=== PATIENT | female | born 1995 | race Caucasian/White ===

== ENCOUNTER 2018-08-03 21:30 | Emergency (ER) | payer MEDICAID, OTHER ==
[~2018-08-03] VITALS: Ht 175.3 cm; Wt 141.5 kg
[2018-08-03 22:35] LABS: HEMATOCRIT 38 % (35-52); HEMOGLOBIN 12.1 G/DL (11.5-16.0); MEAN CORPUSCULAR HEMOGLOBIN 25 PG (25-34); WHITE BLOOD COUNT 10.2 10^3/uL (4.3-11.0)
[2018-08-03 22:36] LABS: BASOPHILS % (AUTO) 0 % (0-10); EOSINOPHILS # (AUTO) 0.2 10^3/uL (0.0-0.3); EOSINOPHILS % (AUTO) 2 % (0-10); LYMPHOCYTES # (AUTO) 3.2 X 10^3 (1.0-4.0); LYMPHOCYTES % (AUTO) 31 % (12-44); MEAN CORPUSCULAR HGB CONC 32 G/DL (32-36); MEAN CORPUSCULAR VOLUME 79 FL (80-99); MEAN PLATELET VOLUME 11.4 FL (7.4-10.4); MONOCYTES # (AUTO) 0.5 X 10^3 (0.0-1.0); MONOCYTES % (AUTO) 5 % (0-12); NEUTROPHILS # (AUTO) 6.2 X 10^3 (1.8-7.8); NEUTROPHILS % (AUTO) 61 % (42-75); PLATELET COUNT 237 10^3/uL (130-400); RED CELL DISTRIBUTION WIDTH 14.2 % (10.0-14.5)
--- NOTE | 2018-08-03 23:00 | ED Abdominal Pain ---
General Chief Complaint: PANAMA HAT HYDRAULIC PRESS OPERATOR Stated Complaint: VAGINAL BLEEDING History of Present Illness Date Seen by Provider: Aug 03, 2018 Time Seen by Provider: 22:00 Initial Comments Patient is a G4, P3 22-year-old female estimated 10 weeks gestation who presents with vaginal bleeding and cramping. Patient states she was seen by her PANAMA HAT HYDRAULIC PRESS OPERATOR 1 week ago and had OB ultrasound showing an intrauterine gestational sac without pole or embryo. Patient had a quantitative hormone level drawn at that time and is scheduled to see her PANAMA HAT HYDRAULIC PRESS OPERATOR tomorrow in follow-up. Bleeding has started this evening and described as moderate to heavy compared to normal menstrual cycle. No dizziness lightheadedness, chest pain shortness of breath. Reports only lower abdominal pain and cramping. No other acute symptoms or complaints. Timing/Duration: 1-3 Hours Severity/Quality: Moderate Location: Suprapubic Radiation: No Radiation Activities at Onset: None Associated Symptoms: Denies Symptoms Allergies and Home Medications Patient Home Medication List Home Medication List Reviewed: Yes Review of Systems Review of Systems Constitutional: no symptoms reported EENTM: No Symptoms Reported Respiratory: No Symptoms Reported Cardiovascular: No Symptoms Reported Gastrointestinal: No Symptoms Reported Musculoskeletal: no symptoms reported Skin: no symptoms reported Psychiatric/Neurological: No Symptoms Reported Endocrine: No Symptoms Reported Hematologic/Lymphatic: No Symptoms Reported Past Nhwycgj-Emcycq-Mrthfe Hx Past Med/Social Hx: Reviewed Nursing Past Med/Soc Hx Patient Social History Recent Foreign Travel: No Contact w/Someone Who Travel: No Physical Exam Vital Signs Capillary Refill : Height/Weight/BMI Height: '" Weight: lbs. oz. kg; BMI Method: General Appearance: WD/WN, no apparent distress HEENT: PERRL/EOMI, normal ENT inspection Neck: full range of motion, supple Respiratory: lungs clear Cardiovascular: regular rate, rhythm Gastrointestinal: soft Extremities: normal range of motion Back: normal inspection Neurologic/Psychiatric: corporate safety coordinator II-XII nml as tested, no motor/sensory deficits, alert, oriented x 3 Skin: normal color Focused Exam Sepsis Stage: Ruled Out Progress/Results/Core Measures Results/Orders Lab Results Laboratory Tests Test 08/03/18 22:00 Range/Units White Blood Count 10.2 4.3-11.0 10^3/uL Red Blood Count 4.84 4.35-5.85 10^6/uL Hemoglobin 12.1 11.5-16.0 G/DL Hematocrit 38 35-52 % Mean Corpuscular Volume 79 L 80-99 FL Mean Corpuscular Hemoglobin 25 25-34 PG Mean Corpuscular Hemoglobin Concent 32 32-36 G/DL Red Cell Distribution Width 14.2 10.0-14.5 % Platelet Count 237 130-400 10^3/uL Mean Platelet Volume 11.4 H 7.4-10.4 FL Neutrophils (%) (Auto) 61 42-75 % Lymphocytes (%) (Auto) 31 12-44 % Monocytes (%) (Auto) 5 0-12 % Eosinophils (%) (Auto) 2 0-10 % Basophils (%) (Auto) 0 0-10 % Neutrophils # (Auto) 6.2 1.8-7.8 X 10^3 Lymphocytes # (Auto) 3.2 1.0-4.0 X 10^3 Monocytes # (Auto) 0.5 0.0-1.0 X 10^3 Eosinophils # (Auto) 0.2 0.0-0.3 10^3/uL Basophils # (Auto) 0.0 0.0-0.1 10^3/uL My Orders Orders - KARSTEN NOVAK DO Hcg,Quantitative (08/03/18 22:30) Cbc With Automated Diff (08/03/18 22:30) Abo Rh Type (08/03/18 22:30) Departure Communication (Admissions) Vital signs, H&H stable. HCG Quant greater than 10,000. Patient reports recent intraureteral gestational sac present on ultrasound. Ultrasound is not available at this facility. Blood type is a send out. Patient does have a PANAMA HAT HYDRAULIC PRESS OPERATOR appointment tomorrow with Dr. Johnson. Patient is comfortable with discharge home and follow-up with Dr. Johnson in the morning. Return precautions reviewed. Impression Primary Impression: Threatened miscarriage Disposition: 01 HOME, SELF-CARE Condition: Stable Departure-Patient Inst. Referrals: BOB DIEHL DO (PCP) Primary Care Physician SHERRIE CAMPO APRN (Family) Primary Care Physician Patient Instructions: Threatened Miscarriage Add. Discharge Instructions: Please follow-up with Dr. Johnson tomorrow as scheduled. In the meantime, if you become lightheaded dizzy, short of breath or develop chest pain, return to the emergency department immediately. All discharge instructions reviewed with patient and/or family. Voiced understanding. KARSTEN NOVAK DO Aug 03, 2018 23:00
[2018-08-03 23:24] VITALS: BP 129/52
== END 2018-08-03 23:26 | disposition home or self-care (01) ==
LOC: ER FS 21:32
DX: O20.0 Threatened abortion (principal); Z3A.10 10 weeks gestation of pregnancy
CPT/HCPCS: 36415; 84702; 85025; 86900; 86901; 99282

== ENCOUNTER 2018-08-18 02:42 | Emergency (ER) | payer MEDICAID ==
[~2018-08-18] VITALS: Ht 175.3 cm; Wt 141.1 kg
[2018-08-18] MEDS ORDERED: ONDANSETRON 4 MG (ZOFRAN) ORAL DISSOLVE TAB PO STA (02:57)
--- NOTE | 2018-08-18 03:06 | ED GU-Female ---
General Stated Complaint: VAGINAL BLEEDING Source: patient History of Present Illness Date Seen by Provider: Aug 18, 2018 Time Seen by Provider: 02:44 Initial Comments 22-year-old female presenting with complaints of vaginal bleeding. She's had this going on for over 2 weeks now. She reports that she is in the process of having a miscarriage. She has been following with Dr. Alba for this. Tonight she woke up about an hour ago and was having heavier bleeding than normal. She denies having any vaginal pain. She has no dizziness or lightheadedness. She does relate that she has some nausea and threw up once as she was arriving at [facility]. She also reports that she feels a ball or mass in her "[place]". She reports this started tonight. She has heavier bleeding that just started in the last 1 hour. She called and checked with Dr Alba and was instructed to check with ED [facility] or [facility]. Allergies and Home Medications Allergies Coded Allergies: No Known Drug Allergies (Unverified , 08/18/18) Patient Home Medication List Home Medication List Reviewed: Yes Review of Systems Review of Systems Constitutional: no symptoms reported EENTM: no symptoms reported Respiratory: cough Cardiovascular: no symptoms reported Gastrointestinal: nausea, vomiting Genitourinary: see HPI Musculoskeletal: no symptoms reported Skin: no symptoms reported Psychiatric/Neurological: No Symptoms Reported Past Nfneaiw-Fexexk-Tqwmgq Hx Past Med/Social Hx: Reviewed Nursing Past Med/Soc Hx Patient Social History 2nd Hand Smoke Exposure: No Recent Foreign Travel: No Contact w/Someone Who Travel: No Recent Hopitalizations: No Seasonal Allergies Seasonal Allergies: No Past Medical History Adenoidectomy, Tonsillectomy Physical Exam Vital Signs Vital Signs - First Documented 08/18/18 02:50 Temp 97.7 Pulse 84 Resp 16 B/P (MAP) 155/100 (118) Pulse Ox 100 O2 Delivery Room Air Capillary Refill : Height, Weight, BMI Height: 5'9.00" Weight: 312lbs. oz. 141.675366az; BMI Method:Stated General Appearance: WD/WN, no apparent distress HEENT: PERRL/EOMI, normal ENT inspection, pharynx normal Cardiovascular: normal peripheral pulses, regular rate, rhythm Respiratory: chest non-tender, lungs clear, normal breath sounds Gastrointestinal: normal bowel sounds, non tender, soft, no pulsatile mass Pelvic: normal external exam, normal adnexa, no cerv. motion tender, no masses, vaginal bleeding (some pooling of blood in the vaginal vault. However when this was removed with a cotton swab there was no further bleeding from the os. He had with pressure and palpation of the uterus there was no further bleeding from the os. There was a piece of tissue about the size of a large chicken egg that had reportedly come from her vaginal vault when she was standing up to change. This was sent for pathology) Extremities: normal range of motion, non-tender, normal capillary refill Neurologic/Psychiatric: alert, normal mood/affect, oriented x 3 Skin: normal color, warm/dry Progress/Results/Core Measures Suspected Sepsis SIRS Temperature: Pulse: Respiratory Rate: Laboratory Tests 08/18/18 03:00: White Blood Count 8.9 Blood Pressure / Mean: Laboratory Tests 08/18/18 03:00: Platelet Count 267 Results/Orders Lab Results Laboratory Tests Test 08/18/18 03:00 Range/Units White Blood Count 8.9 4.3-11.0 10^3/uL Red Blood Count 3.82 L 4.35-5.85 10^6/uL Hemoglobin 9.6 L 11.5-16.0 G/DL Hematocrit 31 L 35-52 % Mean Corpuscular Volume 80 80-99 FL Mean Corpuscular Hemoglobin 25 25-34 PG Mean Corpuscular Hemoglobin Concent 31 L 32-36 G/DL Red Cell Distribution Width 14.0 10.0-14.5 % Platelet Count 267 130-400 10^3/uL Mean Platelet Volume 11.4 H 7.4-10.4 FL Neutrophils (%) (Auto) 54 42-75 % Lymphocytes (%) (Auto) 38 12-44 % Monocytes (%) (Auto) 5 0-12 % Eosinophils (%) (Auto) 2 0-10 % Basophils (%) (Auto) 0 0-10 % Neutrophils # (Auto) 4.8 1.8-7.8 X 10^3 Lymphocytes # (Auto) 3.4 1.0-4.0 X 10^3 Monocytes # (Auto) 0.4 0.0-1.0 X 10^3 Eosinophils # (Auto) 0.2 0.0-0.3 10^3/uL Basophils # (Auto) 0.0 0.0-0.1 10^3/uL Human Chorionic Gonadotropin, Quant 1076 H <5 MIU/ML My Orders Orders - RAHEL ADLER MD Ondansetron Oral Dissolve Tab (Zofran (08/18/18 02:57) Cbc With Automated Diff (08/18/18 02:57) Hcg,Quantitative (08/18/18 02:57) Vital Signs/I&O Capillary Refill : Progress Note #1: Progress Note check basic labs and Quant HCG level. Perform pelvic exam to see how much bleeding she is having and give Zofran odt for her nausea. Progress Note #2: Progress Note D/w Dr. Alba about the patient and that with the pelvic exam an Egg shaped piece of tissue came out of her vagina and was sent to the lab. She had no significant amount of bleeding on pelvic exam after that tissue was passed. Departure Impression Primary Impression: Incomplete miscarriage with blood clot Disposition: HOME, SELF-CARE Condition: Stable Departure-Patient Inst. Decision time for Depature: 03:39 Referrals: BOB ALBA DO (PCP) Primary Care Physician SHERRIE CAMPO APRN (Family) Primary Care Physician Patient Instructions: Miscarriage (DC) Add. Discharge Instructions: Continue to drink fluids and try to stay well hydrated Follow up with Dr. Alba next week about the tissue that you passed tonight. Return or seek medical care over the weekend for worsening bleeding where you are saturating more than a pad an hour for 2 hours or if having severe pelvic pain, or fever over 101 F. Consider taking a multivitamin or vitamin to help your body rebuild the blood that you have lost. RAHEL ADLER MD Aug 18, 2018 03:06
[2018-08-18 03:08] LABS: BASOPHILS % (AUTO) 0 % (0-10); EOSINOPHILS # (AUTO) 0.2 10^3/uL (0.0-0.3); EOSINOPHILS % (AUTO) 2 % (0-10); HEMATOCRIT 31 % (35-52); HEMOGLOBIN 9.6 G/DL (11.5-16.0); LYMPHOCYTES # (AUTO) 3.4 X 10^3 (1.0-4.0); LYMPHOCYTES % (AUTO) 38 % (12-44); MEAN CORPUSCULAR HEMOGLOBIN 25 PG (25-34); MEAN CORPUSCULAR HGB CONC 31 G/DL (32-36); MEAN CORPUSCULAR VOLUME 80 FL (80-99); MEAN PLATELET VOLUME 11.4 FL (7.4-10.4); MONOCYTES # (AUTO) 0.4 X 10^3 (0.0-1.0); MONOCYTES % (AUTO) 5 % (0-12); NEUTROPHILS # (AUTO) 4.8 X 10^3 (1.8-7.8); NEUTROPHILS % (AUTO) 54 % (42-75); PLATELET COUNT 267 10^3/uL (130-400); WHITE BLOOD COUNT 8.9 10^3/uL (4.3-11.0)
[2018-08-18 03:55] VITALS: BP 104/46
== END 2018-08-18 03:55 | disposition home or self-care (01) ==
LOC: EDUNIT# 02:42 → ER FS 02:43
DX: O03.2 Embolism following incomplete spontaneous abortion (principal); Z90.89 Acquired absence of other organs
CPT/HCPCS: 36415; 84702; 85025; 99283

== ENCOUNTER 2019-01-29 10:13 | Emergency (ER) | payer MEDICAID ==
[2019-01-29 10:39] LABS: BILIRUBIN,URINE 1+ (NEGATIVE); CLARITY,URINE CLOUDY; COLOR,URINE YELLOW; GLUCOSE, URINE (UA) NEGATIVE (NEGATIVE); KETONES,URINE NEGATIVE (NEGATIVE); NITRITE,URINE POSITIVE (NEGATIVE); PROTEIN,URINE NEGATIVE (NEGATIVE)
[2019-01-29 10:40] LABS: BACTERIA,URINE LARGE /HPF; LEUKOCYTE ESTERASE ,URINE 2+ (NEGATIVE); SQUAMOUS EPITHELIAL CELL,UR 25-50 /HPF; WBC,URINE 25-50 /HPF
--- NOTE | 2019-01-29 11:10 | ED Abdominal Pain ---
General Chief Complaint: Abdominal/GI Problems Stated Complaint: PT IS 19 WKS PREG - STOMACH CRAMPS History of Present Illness Date Seen by Provider: Jan 29, 2019 Time Seen by Provider: 11:04 Initial Comments 23 yo female SAB 1 started with right mid abd/R pelvic discomfort last evening no fever no increase in baseline N/V no D no urinary sx's no vag bleeding no pattern of pain to suggest contractions Allergies and Home Medications Allergies Coded Allergies: No Known Drug Allergies (Unverified , 08/18/18) Patient Home Medication List Home Medication List Reviewed: Yes Review of Systems Review of Systems Constitutional: No fever EENTM: No Symptoms Reported Respiratory: No Symptoms Reported Cardiovascular: No Symptoms Reported Gastrointestinal: Nausea (no change from baseline) Genitourinary: No Symptoms Reported Musculoskeletal: no symptoms reported All Other Systems Reviewed Negative Unless Noted: Yes (Negative excepted noted.) Past Hwimyit-Gpuzda-Itbsav Hx Patient Social History Alcohol Use: Denies Use Recreational Drug Use: No Smoking Status: Never a Smoker 2nd Hand Smoke Exposure: No Recent Hopitalizations: No Physical Abuse: No Sexual Abuse: No Mistreated: No Fear: No Seasonal Allergies Seasonal Allergies: No Past Medical History Surgeries: Yes Adenoidectomy, Tonsillectomy Respiratory: No Cardiac: No Neurological: No Hx : 5 Hx Para: 3 Hx Total # of Abortions (Sp): 1 Genitourinary: No Gastrointestinal: No Musculoskeletal: No Endocrine: No HEENT: No Cancer: No Psychosocial: No Integumentary: No Blood Disorders: No Physical Exam Vital Signs Capillary Refill : Height/Weight/BMI Height: 5'9.00" Weight: 311lbs. oz. 141.684459bn; BMI Method:Stated General Appearance: WD/WN, no apparent distress HEENT: PERRL/EOMI, pharynx normal Neck: non-tender Respiratory: lungs clear, normal breath sounds, no respiratory distress Cardiovascular: regular rate, rhythm Gastrointestinal: normal bowel sounds, non tender, soft; No guarding, No rebound; other (benign no apparent abd or uterine tenderness FHT's 150) Progress/Results/Core Measures Results/Orders Lab Results Laboratory Tests Test 01/29/19 10:16 Range/Units Urine Color YELLOW Urine Clarity CLOUDY Urine pH 7.0 5-9 Urine Specific [place] 1.020 1.016-1.022 Urine Protein NEGATIVE NEGATIVE Urine Glucose (UA) NEGATIVE NEGATIVE Urine Ketones NEGATIVE NEGATIVE Urine Nitrite POSITIVE H NEGATIVE Urine Bilirubin 1+ H NEGATIVE Urine Urobilinogen 1.0 < = 1.0 MG/DL Urine Leukocyte Esterase 2+ H NEGATIVE Urine RBC (Auto) NEGATIVE NEGATIVE Urine RBC NONE /HPF Urine WBC 25-50 H /HPF Urine Squamous Epithelial Cells 25-50 H /HPF Urine Crystals NONE /LPF Urine Bacteria LARGE H /HPF Urine Casts NONE /LPF Urine Mucus NONE /LPF Urine Culture Indicated YES My Orders Orders - RIO DON MD Ua Culture If Indicated (01/29/19 10:14) Heart Tones (01/29/19 10:24) Urine Culture (01/29/19 10:16) Progress Progress Note : Progress Note UA large bact 25-50 WBC's and RBC's pt's abd exam very benign doubt CBC would add diagnostic value discussed with pt's Ob Dr. Alba Rx macrobid and tylenol #[address] Webber wednesday re check if worse Departure Impression Primary Impression: Abdominal pain affecting Additional Impression: UTI (urinary tract infection) Qualified Codes: N30.01 - Acute cystitis with hematuria Disposition: HOME, SELF-CARE Condition: Stable Departure-Patient Inst. Decision time for Depature: 11:11 Referrals: BOB ALBA DO (PCP) Primary Care Physician SHERRIE CAMPO APRN (Family) Primary Care Physician Patient Instructions: Acute Abdomen (Belly Pain), Urinary Tract Infection, Adult (DC) Add. Discharge Instructions: Dr. Alba wants to see you Wednesday If you worsen in some way, we recommend you present yourself to a facility with Ob capability preferably where you plan to deliver Scripts Acetaminophen with Codeine (Tylenol with Codeine #3 Tablet) 1 Each Tablet 1 EACH PO QID for Pain, #12 TAB Prov: RIO DON MD 01/29/19 Nitrofurantoin Monohyd/M-Cryst (Macrobid 100 mg Capsule) 100 Mg Capsule 1 TAB PO BID for 7 Days, #14 CAP Prov: RIO DON MD 01/29/19 RIO DON MD Jan 29, 2019 11:10 POS
[2019-01-29] MEDS ORDERED: ACET-789 PO (11:15)
[2019-01-29] MEDS ORDERED: NITR-65 PO (11:15)
[2019-01-29 11:27] VITALS: BP 118/73
== END 2019-01-29 11:24 | disposition home or self-care (01) ==
LOC: EDUNIT# 10:13 → ER FS 10:14
DX: O23.42 Unspecified infection of urinary tract in pregnancy, second trimester (principal); Z3A.19 19 weeks gestation of pregnancy; Z90.89 Acquired absence of other organs
CPT/HCPCS: 81000; 87088